=== PATIENT | female | born 1945 | race Caucasian/White ===

== ENCOUNTER 2025-04-21 10:15 | Emergency (ER) | payer MEDICARE, SELFPAY ==
--- NOTE | 2025-04-21 10:29 | ED.GENADULT ---
HPI - General Adult General Chief complaint: Ear Stated complaint: Dizziness/Ears History of Present Illness HPI narrative: 79-year-old female patient presents to the [facility] with complaints of dizziness for the past 1-2 months. Patient states she is also known noticed that her hearing has declined over the past month. Denies any pain to the ears. Denies any fevers body aches or chills. Denies chest pain or shortness of breath. Patient denies taking anything for her symptoms. Patient also states that she has a rash to bilateral arms x1 week. Patient states that she was out pulling weeds and does note that she did get into some poison brett. Patient states she has tried some [id number] Benadryl cream, calamine and alcohol to try and dry up the rash but states that has not gone away. Denies any trouble swallowing or sore throat. Related Data Allergies Allergy/AdvReac Type Severity Reaction Status Date / Time Penicillins Allergy Unknown RASH Verified 04/21/25 10:37 codeine Allergy Vomiting Verified 04/21/25 10:37 Review of Systems Review of Systems: CONSTITUTIONAL: Denies fever, chills, or sweats. EYES: Denies visual changes, redness, or discharge. ENT: Denies rhinorrhea, congestion, sore throat, or otalgia. Decrease in hearing x1 month CARDIOVASCULAR: Denies chest pain, palpitations, or edema. RESPIRATORY: Denies cough or dyspnea. GASTROINTESTINAL: Denies abdominal pain, nausea, vomiting, or diarrhea. GENITOURINARY: Denies dysuria or hematuria. SKIN: Positive rash with itching to bilateral arms x1 week. MUSCULOSKELETAL: Denies back pain, joint pain, or myalgia. NEUROLOGIC: Denies headache, numbness, or weakness. Positive dizziness times 1-2 months. PSYCHIATRIC: Denies anxiety or depression. PMFSH Past Medical History Medical History Neck mass Neck mass removed noncancerous Surgical History Surgical History History of Comments At the time of my signature I agree with nursing past medical history, surgical, social, and family history. There is no relevant family history pertinent to the presenting complaint. Exam Narrative: GENERAL: Well-appearing, well-nourished, and in no acute distress. HEAD: Normocephalic, atraumatic. EYES: PERRLA and EOMI. ENT: Nares clear, no rhinorrhea or epistaxis. Mucous membranes moist. Posterior pharynx with no erythema, tonsillar enlargement, exudates or lesions present. Bilateral TMs unable to be assessed due to cerumen impaction. NECK: Supple. No lymphadenopathy CHEST: Clear to auscultation. No respiratory distress. HEART: Regular rate and rhythm. No murmur heard. Normal peripheral pulses. ABDOMEN: Soft, nontender, nondistended, normal active bowel sounds. EXTREMITIES: Normal range of motion. No edema. SKIN: Warm, dry, patient does have blotchy dry rash with flat macules noted to bilateral arms and hands. No open wounds or discharge present. No vesicles present. NEURO: No focal deficits. Alert and oriented x3. Course Course Level of Care: Express Care Visit Reevaluation(s) Reevaluation #1: Patient's hearing has improved after this impacting bilateral ears. Patient still has slight dizziness with testing therefore we will discharge her home with some meclizine for the dizziness as well as some ear drops to prevent infection to the outer ears. We will also discharge her home with some prednisone to help with the rash due to poison brett bilateral arms. Patient is aware the plan of care denies any other questions or concerns at this time. Date: 04/21/25 Time: 12:17 Vital Signs Vital signs: Vital Signs Temperature 37.4 C 04/21/25 10:30 Pulse Rate 79 04/21/25 10:30 Respiratory Rate 18 04/21/25 10:30 Blood Pressure 150/73 H 04/21/25 10:30 Pulse Oximetry 97 04/21/25 10:30 Oxygen Delivery Room Air 04/21/25 10:30 Temperature 37.4 C 04/21/25 10:30 Pulse Rate 79 04/21/25 10:30 Respiratory Rate 18 04/21/25 10:30 Blood Pressure 150/73 H 04/21/25 10:30 Pulse Oximetry 97 04/21/25 10:30 Oxygen Delivery Room Air 04/21/25 10:30 Vital signs reviewed. The patient has been informed that they may have pre-hypertension or Hypertension based on a BP reading in the department. I recommend that the patient call the primary care provider listed on their discharge instructions or a physician of their choice this week to arrange follow up for further evaluation of possible pre-hypertension or Hypertension Procedures Ear Wax Removal Both Ears: Ear Wax Removal Date: 04/21/25 Ear Wax Removal Time: 12:18 Cerumenolytic Used: Cerumenex and 5-10% Sodium Bicarb solution Results: Re-examined: cerumen removed completely TM Examination: TM(s) intact, normal appearance and TM(s) erythematous Ear Canal Exam: atraumatic Patient Tolerated Procedure: well Complications: no problems and vertigo/dizziness Technique: ear canal irrigated and ear canal curetted Additional Comments: The patient had cerumen removed from the L/R ear canal with warm water and peroxide irrigation and a loop in order to visualize the TM. The TM has no perforations or erythema post procedure. There were no complications. Medical Decision Making MDM Narrative Medical decision making narrative: Plan of care for patient is to use Debrox to soak bilateral ears for ear disimpaction and then we can better assess if there is any fluid or inflammation or infection behind the eardrum causing the dizziness. We will also do most likely discharge patient home with oral steroids for the bilateral poison brett rash. I will reassess patient once the ears have been disimpacted. Differential Diagnosis Differential Diagnosis: Differential diagnosis: Otitis media, otitis externa, perforated TM, infection of the outer ear, foreign body or cerumen impaction, ruptured TM, acute mastoiditis, ligament otitis externa, dehydration, pneumonia, sepsis, dental or intraoral infection, TMJ dysfunction Vital Signs Vital Signs: Vital Signs Temperature 37.4 C 04/21/25 10:30 Pulse Rate 79 04/21/25 10:30 Respiratory Rate 18 04/21/25 10:30 Blood Pressure 150/73 H 04/21/25 10:30 Pulse Oximetry 97 04/21/25 10:30 Oxygen Delivery Room Air 04/21/25 10:30 Temperature 37.4 C 04/21/25 10:30 Pulse Rate 79 04/21/25 10:30 Respiratory Rate 18 04/21/25 10:30 Blood Pressure 150/73 H 04/21/25 10:30 Pulse Oximetry 97 04/21/25 10:30 Oxygen Delivery Room Air 04/21/25 10:30 Critical Care Time Critical Care Time Critical Care Time: No Discharge Plan Discharge Clinical Impression: Bilateral impacted cerumen, 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 Gently clean the outer part of the ear with a cotton swab. Do NOT place the cotton swab or anything inside your ear canal. This increases the risk of damaging your eardrum. Contact your primary care provider or go to the emergency department if: Have a fever Have trouble hearing or ringing in the ear You feel dizzy You have discharge or blood coming out of her ear Your ear pain does not go away or gets worse Patient Language: Scottish Prescriptions: New meclizine 25 mg tablet 25 mg PO BID 7 Days Qty: 14 0RF prednisone 20 mg tablet 40 mg PO DAILY 5 Days Qty: 10 0RF Rx Instructions: 60 mg daily x1 week, 40 mg daily x1 week, 20 mg daily x1 week ofloxacin 0.3 % drops 10 drp EACH EAR DAILY 5 Days Qty: 10 0RF Follow-up/Referrals: PHYSICIAN,SILICATOR [Primary Care Provider] - Time of Disposition: 12:17
[2025-04-21 10:30] VITALS: BP 150/73; PULSE 79; RESP 18; TEMP 37.4; O2SAT 97
[2025-04-21] MEDS: CARBAMIDE PEROXIDE 6.5% OT SOLN 15 ML BTL 5 DROP EACH EAR (10:48)
== END 2025-04-21 12:34 | disposition home or self-care (01) ==
PROVIDERS: Emergency Provider Nurse Practitioner Family
DX: H61.23 Impacted cerumen, bilateral (principal); L25.5 Unspecified contact dermatitis due to plants, except food; R42 Dizziness and giddiness
CPT/HCPCS: 69210; 99213; A9270; G0463